=== PATIENT | female | born 1965 | race Caucasian/White ===

== ENCOUNTER 2017-05-17 21:31 | Emergency (ER) | payer MEDICAID, OTHER ==
[~2017-05-17] VITALS: Ht 157.5 cm; Wt 65.9 kg
[~2017-05-17 21:31] MED LIST: CEPH500C PO; IRON1TAB90 PO; LEVE500T76 PO; LORA2TAB PO; ONDA8TAB10 PO; PARO20TA5 PO; POLY17PO6 PO; POTA10TA38 PO; SUCR1ORA PO; SUMA50TA2 PO; THIA500T PO
[2017-05-17 21:36] VITALS: BP 123/77; PULSE 98; RESP 16; O2SAT 98
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
[2017-05-18] MEDS ORDERED: HYDROmorphone 1 mg/mL Inj IVPUSH ONE (00:10)
[2017-05-18] MEDS ORDERED: _oxyCODONE/APAP 5-325 mg Tablet PO PRN (00:10)
[2017-05-18 00:58] VITALS: BP 115/77; PULSE 92; RESP 18; O2SAT 97
--- NOTE | 2017-05-18 08:13 | DRSVH ---
PROCEDURE: X-RAY LEFT HAND, MINIMUM THREE VIEWS ([id number]) INDICATIONS: injury with thumb deformity TECHNIQUE: 3 views of the hand(s) acquired. COMPARISON: [facility], CR, XR HAND 2VW LT, 05/18/2017, 0:28. FINDINGS: Bones: There is a comminuted, prominently angulated fracture of the proximal phalanx of the thumb. T here is intra-articular involvement seen. No yony joint dislocation is detected. No additional fractures are detected. No suspicious lytic or blastic lesions are seen. Soft tissues: No suspicious soft tissue calcifications. IMPRESSION: Prominently angulated, comminuted, intra-articular fracture of the proximal phalanx of th e thumb. Dictated by: Sachin Ledesma M.D. on 05/18/2017 at 8:10 Approved by: Sachin Ledesma M.D. on 05/18/2017 at 8:12
--- NOTE | 2017-05-18 08:20 | DRSVH ---
PROCEDURE: X-RAY LEFT HAND, TWO VIEWS ([id number]) INDICATIONS: post reduction TECHNIQUE: 2 views of the hand(s) acquired. COMPARISON: [facility], CR, XR HAND 3VW LT, 05/17/2017, 23:03. FINDINGS: Bones: There is improved anatomic alignment of this patient's comminuted, intra-articular fracture o f the proximal phalanx of the left thumb. No dislocation is seen. Age-appropriate bony degenerative changes are seen. Soft tissues: No suspicious soft tissue calcifications. IMPRESSION: There is improved anatomic alignment of this patient's intra-articular, comminuted fractu re of the proximal phalanx of the thumb. Note: No significant discrepancy from the preliminary report. Dictated by: Sachin Ledesma M.D. on 05/18/2017 at 8:18 Approved by: Sachin Ledesma M.D. on 05/18/2017 at 8:19
[2017-05-20] MEDS ORDERED: FLUO10TA PO (17:26)
[2017-05-20] MEDS ORDERED: CYCL5TAB PO (17:26)
[2017-05-20] MEDS ORDERED: LORA10CA9 PO (17:26)
[2017-05-20] MEDS ORDERED: CEPH500C PO (17:26)
== END 2017-05-18 01:00 | disposition home or self-care (01) ==
LOC: EDBD 21:31 → SED 21:31 → EDUNIT# 21:31 → SED 05-18 01:00
DX: S62.512A Displaced fracture of proximal phalanx of left thumb, initial encounter for closed fracture (principal); V19.9XXA Pedal cyclist (driver) (passenger) injured in unspecified traffic accident, initial encounter; Y93.55 Activity, bike riding; Y92.89 Other specified places as the place of occurrence of the external cause; Y99.8 Other external cause status; F41.8 Other specified anxiety disorders; Z87.891 Personal history of nicotine dependence; Z59.0 Homelessness; Z88.8 Allergy status to other drugs, medicaments and biological substances
CPT/HCPCS: 26725; 73120; 73130; 96374; 99284; J1170